=== PATIENT | female | born 1955 | race Caucasian/White ===

== ENCOUNTER → 2018-03-06 | Outpatient (CLI) | payer OTHER ==
[~2018-03-06] MED LIST: BIRTH CONTROL; CYANOCOBALAMIN PO; FLUTICASONE PRO16 GM; NIACIN PO; PANTOTHENIC ACID PO; POTASSIUM CITR10 MEQ PO; PYRIDOXINE PO; VITAMIN C60 MG PO; [UNRECOGNIZED DRUG - OTHER] PO
--- NOTE | 2018-03-07 08:31 | Diagnostic Imaging Report ---
#[id number] - MGDXBIL #BILATERAL DIGITAL DIAGNOSTIC MAMMOGRAM WITH CAD: 03/06/2018 CLINICAL: Routine screening. Comparison is made to exams dated: 08/31/2017 mammogram, 02/15/2017 mammogram, 03/09/2016 stereotactic biopsy, 03/01/2016 mammogram and 02/10/2016 mammogram - [facility]. Current study contains 8 films. The tissue of both breasts is heterogeneously dense. This may lower the sensitivity of mammography. Current study was also evaluated with a Computer Aided Detection (CAD) system. There are benign calcifications in the right breast. There also are benign scattered calcifications in the left breast. Additionally there are post operative findings in the left breast with a scar marker present. No significant masses, calcifications, or other findings are seen in either breast. There has been no significant interval change. IMPRESSION: BENIGN There is no mammographic evidence of malignancy. A 1 year screening mammogram is recommended. The patient will be notified by letter of the results. Garfield Dunn Jr., D.O. cw/:03/06/2018 12:37:46 Exchange Engineer: Sahara STEWART(R)(M), [facility] letter sent: Compared to Prior B9 Mammogram BI-RADS: 2 Benign
== END ==
LOC: MAMMO 08:19
PROVIDERS: ATTEND Internal Medicine
DX: C50.412 Malignant neoplasm of upper-outer quadrant of left female breast (principal); Z17.0 Estrogen receptor positive status [ER+]
CPT/HCPCS: 77066

== ENCOUNTER → 2019-03-07 | Outpatient (CLI) | payer OTHER ==
--- NOTE | 2019-03-10 08:27 | Diagnostic Imaging Report ---
#[id number] - MGDXBIL #BILATERAL DIGITAL DIAGNOSTIC MAMMOGRAM WITH CAD: 03/07/2019 Comparison is made to exams dated: 03/06/2018 mammogram, 08/31/2017 mammogram and 02/15/2017 mammogram - [facility]. Current study contains 6 films. The tissue of both breasts is heterogeneously dense. This may lower the sensitivity of mammography. Current study was also evaluated with a Computer Aided Detection (CAD) system. There are benign calcifications in the left breast. There also are post operative findings in the left breast with a scar marker present. No significant masses, calcifications, or other findings are seen in either breast. There has been no significant interval change. IMPRESSION: BENIGN There is no mammographic evidence of malignancy. A 1 year screening mammogram is recommended. The patient will be notified by letter of the results. Garfield Dunn Jr., D.O. cw/:03/07/2019 15:25:55 Test Deskman: Sahara STEWART(R)(M), [facility] letter sent: Compared to Prior B9 Mammogram BI-RADS: 2 Benign
== END ==
LOC: MAMMO 13:29
PROVIDERS: ATTEND Internal Medicine
DX: C50.412 Malignant neoplasm of upper-outer quadrant of left female breast (principal)
CPT/HCPCS: 77066; 77080

== ENCOUNTER → 2020-03-09 | Outpatient (CLI) | payer OTHER ==
--- NOTE | 2020-03-10 08:52 | Diagnostic Imaging Report ---
#[id number] - MGDXBIL #BILATERAL DIGITAL DIAGNOSTIC MAMMOGRAM WITH CAD: 03/09/2020 Comparison is made to exams dated: 03/07/2019 mammogram, 08/31/2017 mammogram and 03/06/2018 mammogram - [facility]. There are scattered fibroglandular elements in both breasts. Current study was also evaluated with a Computer Aided Detection (CAD) system. There are benign calcifications in the left breast. There also are post operative findings in the left breast. No significant masses, calcifications, or other findings are seen in either breast. There has been no significant interval change. IMPRESSION: BENIGN There is no mammographic evidence of malignancy. A 1 year screening mammogram is recommended. The patient will be notified by letter of the results. OMEGA lees/hannah:03/09/2020 15:25:03 Burrer Hand: Sahara STEWART(R)(M), [facility] letter sent: Compared to Prior B9 Mammogram BI-RADS: 2 Benign
== END ==
LOC: MAMMO 08:48
PROVIDERS: ATTEND Internal Medicine
DX: C50.412 Malignant neoplasm of upper-outer quadrant of left female breast (principal); Z17.0 Estrogen receptor positive status [ER+]
CPT/HCPCS: 77066

== ENCOUNTER → 2021-03-10 | Outpatient (CLI) | payer OTHER | LOC: MAMMO 09:59 | PROVIDERS: ATTEND Internal Medicine | DX: C50.412 Malignant neoplasm of upper-outer quadrant of left female breast (principal); Z17.0 Estrogen receptor positive status [ER+] | CPT/HCPCS: 77066 ==

== ENCOUNTER → 2022-03-27 | Outpatient (CLI) | payer MEDICARE | LOC: MAMMO 10:28 | PROVIDERS: ATTEND Internal Medicine | DX: Z12.31 Encounter for screening mammogram for malignant neoplasm of breast (principal); Z13.820 Encounter for screening for osteoporosis; Z78.0 Asymptomatic menopausal state | CPT/HCPCS: 77067; 77080 ==

== ENCOUNTER → 2024-06-05 | Outpatient (REF) | payer MEDICARE, OTHER | LOC: MAMMO 12:42 | PROVIDERS: ATTEND Internal Medicine | DX: Z12.31 Encounter for screening mammogram for malignant neoplasm of breast (principal) | CPT/HCPCS: 77067 ==

== ENCOUNTER → 2024-07-31 | Outpatient (REF) | payer MEDICARE, OTHER ==
[~2024-07-31] MED LIST changes: +IOPAMIDOL 370 MG/ML 100 ML INFUS..BTL INJ ONE; +METOPROLOL TARTRATE 25 MG TAB ONE; +METOPROLOL TARTRATE INJ 1 MG/ML VIAL ONE; +NITROGLYCERIN 0.4 MG SUBL ONE
[2024-07-31 08:56] LABS: CREATININE, SERUM 0.86 mg/dL (0.57-1.11)
== END ==
LOC: CT 07:41
PROVIDERS: ATTEND Internal Medicine Cardiovascular Disease
DX: I10 Essential (primary) hypertension (principal); R94.39 Abnormal result of other cardiovascular function study
CPT/HCPCS: 36415; 75574; 75580; 82565; 84520; Q9967

== ENCOUNTER 2024-09-08 07:22 | Day surgery (SDC) | payer MEDICARE, OTHER ==
[2024-09-05 08:52] LABS: BASOPHILS % 0.6 % (0.0-1.0); EOSINOPHILS # (AUTO) 0.2 (0.0-0.4); EOSINOPHILS % 2.7 % (0.0-6.0); LYMPHOCYTES # (AUTO) 2.3 (1.0-3.2); LYMPHOCYTES % 32.3 % (18.0-39.1); MEAN CORPUSCULAR HEMOGLOBIN 29.7 pg (28-32); MEAN CORPUSCULAR HGB CONC 32.6 g/dL (31-35); MEAN CORPUSCULAR VOLUME 91.1 fL (81-99); MONOCYTES # (AUTO) 0.5 (0.2-0.8); MONOCYTES % 6.7 % (4.4-11.3); NEUTROPHILS % 57.6 % (38.7-80.0); PLATELET COUNT 260 x10e3/uL (140-360); RED BLOOD COUNT 4.72 x10e6/uL (3.6-5.1); RED CELL DISTRIBUTION WIDTH 12.6 % (11.7-14.4)
[2024-09-05 09:03] LABS: INR 0.83; PROTHROMBIN TIME 11.9 seconds (11.9-14.5)
[2024-09-05 09:13] LABS: ALBUMIN/GLOBULIN RATIO 1.3 (0.8-2.0); BILIRUBIN,TOTAL 0.3 mg/dL (0.2-1.2); CALCIUM 9.5 mg/dL (8.4-10.2); CREATININE, SERUM 0.79 mg/dL (0.57-1.11); TOTAL PROTEIN 7.2 g/dL (6.5-8.1)
[2024-09-08] VITALS (8 sets, daily range): BP systolic 130–170; BP diastolic 76–91; PULSE 70–78; RESP 14–19; TEMP 97–97.6; O2SAT 98–100
[~2024-09-08] VITALS: Ht 157.5 cm; Wt 81.6 kg
[~2024-09-08 07:22] MED LIST changes: -IOPAMIDOL 370 MG/ML 100 ML INFUS..BTL INJ ONE; -METOPROLOL TARTRATE 25 MG TAB ONE; -METOPROLOL TARTRATE INJ 1 MG/ML VIAL ONE; -NITROGLYCERIN 0.4 MG SUBL ONE
[2024-09-08] MEDS ORDERED: HEPARIN SOD (PORCINE) 1000 UNIT/ML 30ML ONE (07:56)
[2024-09-08] MEDS ORDERED: HEPARIN SOD/SOD CHLORIDE 2,000 ML ONE (07:57)
[2024-09-08] MEDS ORDERED: LIDOCAINE HCL 2% LOCAL 20 ML VIAL ONE (07:57)
[2024-09-08] MEDS ORDERED: NITROGLYCERIN/D5W 200 MCG/ML 250 ML ONE (07:57)
[2024-09-08] MEDS ORDERED: IOPAMIDOL 370 MG/ML 100 ML INFUS..BTL INJ ONE (07:57)
[2024-09-08] MEDS ORDERED: VERAPAMIL HCL 2.5 MG/ML 2 ML VIAL ONE (07:57)
[2024-09-08] MEDS ORDERED: SODIUM CHLORIDE 0.9% 1000ML 1,000 ML ONE (07:57)
[2024-09-08] MEDS ORDERED: AMLODIPINE BESYL5 MG PO (08:20)
[2024-09-08] MEDS ORDERED: METFORMIN HCL500 M1 PO (08:20)
[2024-09-08] MEDS ORDERED: OCUVITE TABLET1 EAC1 PO (08:20)
[2024-09-08] MEDS ORDERED: B-122500 MCG PO (08:20)
[2024-09-08] MEDS ORDERED: MAGNESIUM500 MG PO (08:20)
[2024-09-08] MEDS ORDERED: WOMEN'S DAILY1 EAC4 PO (08:20)
[2024-09-08] MEDS ORDERED: ATORVASTATIN CA10 MG PO (08:20)
[2024-09-08] MEDS ORDERED: CO Q-10100 MG PO (08:20)
[2024-09-08] MEDS ORDERED: FRUIT & VEGETA1 EACH PO (08:20)
[2024-09-08] MEDS ORDERED: GARLIC500 MG PO (08:20)
[2024-09-08] MEDS ORDERED: ZINC50 M3 PO (08:20)
[2024-09-08] MEDS ORDERED: TURMERIC538 MG PO (08:20)
[2024-09-08] MEDS: ALPRAZOLAM 0.5 MG TAB ONE (09:06)
[2024-09-08] MEDS: DIPHENHYDRAMINE HCL 25 MG CAP ONE (09:07)
[2024-09-08] MEDS ORDERED: MIDAZOLAM HCL 2 MG/2 ML VIAL ONE (09:31)
[2024-09-08] MEDS ORDERED: FENTANYL CITRATE/PF 100MCG/2 ML INJ ONE (09:31)
== END 2024-09-08 12:00 | disposition home or self-care (01) ==
LOC: CATH LAB 07:22
PROVIDERS: ATTEND Internal Medicine Cardiovascular Disease
DX: I25.119 Atherosclerotic heart disease of native coronary artery with unspecified angina pectoris (principal); I10 Essential (primary) hypertension; E78.5 Hyperlipidemia, unspecified; Z88.6 Allergy status to analgesic agent; Z88.1 Allergy status to other antibiotic agents; Z88.0 Allergy status to penicillin; Z01.812 Encounter for preprocedural laboratory examination; Z79.84 Long term (current) use of oral hypoglycemic drugs; Z79.899 Other long term (current) drug therapy; Z68.33 Body mass index [BMI] 33.0-33.9, adult; Z87.440 Personal history of urinary (tract) infections
CPT/HCPCS: 36415 ×2; 76937; 80053; 82948; 85025; 85610; 93458; C1887; J1644; J2003; J2250; J3010; J7030; Q9967; 99152

== ENCOUNTER → 2025-06-05 | Outpatient (REF) | payer MEDICARE, OTHER ==
[~2025-06-05] MED LIST changes: +AMLODIPINE BESYL5 MG PO; +ATORVASTATIN CA10 MG PO; +B-122500 MCG PO; +CO Q-10100 MG PO; +FRUIT & VEGETA1 EACH PO; +GARLIC500 MG PO; +MAGNESIUM500 MG PO; +METFORMIN HCL500 M1 PO; +OCUVITE TABLET1 EAC1 PO; +TURMERIC538 MG PO; +WOMEN'S DAILY1 EAC4 PO; +ZINC50 M3 PO
== END ==
LOC: MAMMO 12:19
PROVIDERS: ATTEND Radiology Radiation Oncology
DX: Z12.31 Encounter for screening mammogram for malignant neoplasm of breast (principal)
CPT/HCPCS: 77067